=== PATIENT | female | born 1965 | race Caucasian/White ===

== ENCOUNTER → 2020-09-06 | Outpatient (CLI) | payer OTHER ==
[~2020-09-06] MED LIST: AMLO-150 PO; BIMA5DRO2 EACHEYE; BP med; BP med PO; CLOB15CR19 TP; DIPH25CA26 PO; GABA300C10 PO; HYDR-2214 PO; HYDR12.517 PO; MELA1TAB8 PO; MULT-658 PO; ONDA8TAB9 PO; OXYC5CAP2 PO; PEGF6DIS2 IM; PROC10TA2 PO; SULF1TAB24 PO; TAMO20TA PO; VENL37.52 PO; biotin PO; potassium PO; tylenol arthritis PO; vitamin d PO
[2020-09-06 12:52] LABS: ALANINE AMINOTRANSFERASE 28 U/L (12-78); ALBUMIN 3.9 g/dL (3.4-5.0); ANION GAP 6 mmol/L (5-15); CALCIUM 8.9 mg/dL (8.5-10.1); CHLORIDE 104 mmol/L (98-107); CREATININE 0.79 mg/dL (0.55-1.02)
[2020-09-06 12:54] LABS: ALKALINE PHOSPHATASE 67 U/L (45-117); BILIRUBIN,TOTAL 0.4 mg/dL (0.2-1.0); TOTAL PROTEIN 7.5 g/dL (6.4-8.2)
== END | disposition home or self-care (01) ==
LOC: STAR 11:46
PROVIDERS: ATTEND Obstetrics & Gynecology Female Pelvic Medicine and Reconstructive Surgery
DX: Z01.812 Encounter for preprocedural laboratory examination (principal); Z20.822 Contact with and (suspected) exposure to COVID-19
CPT/HCPCS: 36415; 80053; U0003; U0005

== ENCOUNTER 2020-09-10 05:29 | Day surgery (SDC) | payer OTHER ==
[~2020-09-10] VITALS: Ht 177.8 cm; Wt 77.4 kg
[2020-09-10 06:17] VITALS: BP 134/86
[2020-09-10] MEDS ORDERED: CHLORHEXIDINE 15 ML UDC ONE (06:23)
[2020-09-10] MEDS ORDERED: CHLORHEXIDINE 15 ML UDC PO ONE (06:30)
[2020-09-10] MEDS ORDERED: LACTATED RINGERS 1,000 ML IV SCH (06:30)
[2020-09-10 06:43] LABS: MICROSCOPIC INDICATED
[2020-09-10] MEDS ORDERED: MIDAZOLAM 1 MG/ML, 2ML ONE (06:57)
[2020-09-10] MEDS ORDERED: FENTANYL PF 250 MCG/5ML ONE ×2 (06:57→08:30)
[2020-09-10] MEDS ORDERED: BUPIVACAINE/PF 0.25% ONE (07:01)
[2020-09-10] MEDS ORDERED: EPINEPHRINE 1 MG/ML, 1ML ONE (07:02)
[2020-09-10] MEDS ORDERED: VANCOMYCIN 500 MG ONE (07:02)
[2020-09-10] MEDS ORDERED: GENTAMICIN 80 MG/2 ML ONE (07:02)
[2020-09-10] MEDS ORDERED: FUROSEMIDE 20 MG/2 ML ONE (07:02)
[2020-09-10] MEDS ORDERED: KETOROLAC 30 MG/1 ML ONE (07:29)
[2020-09-10] MEDS ORDERED: METOCLOPRAMIDE 5 MG/ML, 2ML ONE (07:29)
[2020-09-10] MEDS ORDERED: LIDOCAINE 1%, 20ML ONE (07:29)
[2020-09-10] MEDS ORDERED: HYDROmorphone 1 MG/ML, 1ML INJ IVPush PRN (07:30)
[2020-09-10] MEDS ORDERED: HALOPERIDOL 5 MG/ML IV PRN (07:30)
[2020-09-10] MEDS ORDERED: METHOCARBAMOL 1,000 MG in DEXTROSE 5% 100 ML IV PRN (07:30)
[2020-09-10] MEDS ORDERED: PROMETHAZINE 25 MG/ML, 1ML IVPush PRN (07:30)
[2020-09-10] MEDS ORDERED: LORazepam 2 MG/ML, 1ML IVPush PRN (07:30)
[2020-09-10] MEDS ORDERED: ONDANSETRON 2MG/ML, 2ML IVPush PRN (07:30)
[2020-09-10] MEDS ORDERED: ACETAMINOPHEN 325 MG TABLET PO PRN (07:30)
[2020-09-10] MEDS ORDERED: EPHEDRINE 50 MG/ML, 1ML IVPush PRN (07:30)
[2020-09-10] MEDS ORDERED: FENTANYL PF 100 MCG/2ML IV PRN (07:30)
[2020-09-10] MEDS ORDERED: MEPERIDINE/PF 25MG/0.5ML IVPush PRN (07:30)
[2020-09-10] MEDS ORDERED: OXYcodone 5 MG/5 ML ORAL.SOL UDC PO PRN (07:30)
[2020-09-10] MEDS ORDERED: hydrALAzine 20 MG/ML, 1ML IV PRN (07:30)
[2020-09-10] MEDS ORDERED: LABETALOL 5MG/ML, 20ML IV PRN (07:30)
[2020-09-10] MEDS ORDERED: GLYCOPYRROLATE 0.2MG/1ML, 5ML ONE (08:04)
[2020-09-10] MEDS ORDERED: ONDANSETRON 2MG/ML, 2ML ONE (08:04)
[2020-09-10] MEDS ORDERED: ROCURONIUM 10MG/ML,5ML ONE (08:04)
[2020-09-10] MEDS ORDERED: PROPOFOL 10 MG/ML, 20ML ONE (08:04)
[2020-09-10] MEDS ORDERED: NEOSTIGMINE 1 MG/ML, 10ML ONE (08:04)
[2020-09-10] MEDS ORDERED: SUCCINYLCHOLINE 20 MG/ML, 10ML ONE (08:04)
[2020-09-10] MEDS ORDERED: CEFAZOLIN 1,000 MG ONE (08:04)
[2020-09-10] MEDS ORDERED: DEXAMETHASONE 4 MG/ML, 1ML ONE (08:04)
[2020-09-10] MEDS ORDERED: PROPOFOL 50 ML ONE (08:08)
[2020-09-10] MEDS ORDERED: FLUORESCEIN SODIUM 500 MG/5 ML ONE (08:39)
[2020-09-10] MEDS ORDERED: FENTANYL PF 100 MCG/2ML ONE (09:32)
[2020-09-10] MEDS ORDERED: OXYcodone 5 MG/5 ML ORAL.SOL UDC ONE (09:32)
[2020-09-10] MEDS ORDERED: ACETAMINOPHEN 650 MG/20.3 ML UDC ONE (09:32)
== END 2020-09-10 12:45 | disposition home or self-care (01) ==
LOC: OUT 05:29
PROVIDERS: ATTEND Obstetrics & Gynecology Female Pelvic Medicine and Reconstructive Surgery
DX: N95.0 Postmenopausal bleeding (principal); N81.89 Other female genital prolapse; N80.0 Endometriosis of uterus; N72 Inflammatory disease of cervix uteri; N88.8 Other specified noninflammatory disorders of cervix uteri; N83.312 Acquired atrophy of left ovary; N83.311 Acquired atrophy of right ovary; N39.46 Mixed incontinence; N94.10 Unspecified dyspareunia; N81.11 Cystocele, midline; N81.5 Vaginal enterocele; N81.6 Rectocele; I10 Essential (primary) hypertension; Z79.899 Other long term (current) drug therapy; Z85.3 Personal history of malignant neoplasm of breast; Z98.890 Other specified postprocedural states
CPT/HCPCS: 57265; 57282; 57288; 58552; 81001; 87077; 87086; 88307; C1771; J0171; J0330; J0690; J1100; J1580; J1885; J1940; J2250; J2405; J2704; J2710; J2765; J2800; J3010; J3370; J7120; 87186